=== PATIENT | male | born 1965 | race Caucasian/White ===

== ENCOUNTER 2022-08-11 18:32 | Emergency (ER) | payer MEDICAID ==
[~2022-08-11] VITALS: Ht 177.8 cm; Wt 90.7 kg
[2022-08-11] MEDS ORDERED: OXYCODONE (18:51)
[2022-08-11] MEDS ORDERED: diphenhydrAMINE 50 MG/1 ML VIAL IM ONE (19:00)
[2022-08-11] MEDS ORDERED: HALOPERIDOL LACTATE 5 MG/1 ML VIAL IM ONE (19:00)
[2022-08-11] MEDS ORDERED: diphenhydrAMINE 50 MG/1 ML VIAL ONE (19:02)
[2022-08-11] MEDS ORDERED: HALOPERIDOL LACTATE 5 MG/1 ML VIAL ONE (19:03)
--- NOTE | 2022-08-11 19:15 | NUR ---
Pt seen by MD for bedside eval. Safety measures in place. Will continue to monitor.
[2022-08-11 19:19] LABS: HEMATOCRIT 38.5 % (36.7-47.1); MEAN CORPUSCULAR HEMOGLOBIN 34.1 uug (23.8-33.4); MEAN CORPUSCULAR VOLUME 103.3 fL (73.0-96.2); PLATELET COUNT (AUTO) 338 K/uL (152-348)
[2022-08-11 19:35] LABS: CARBON DIOXIDE 25 mmol/L (21-32); CHLORIDE 108 mmol/L (98-107); GLUCOSE 109 mg/dL (74-106); POTASSIUM 3.6 mmol/L (3.5-5.1); UREA NITROGEN, BLOOD 10 mg/dL (7-18)
[2022-08-11 19:41] LABS: THYROID STIMULATING HORMONE 0.423 mIU/mL (0.358-3.740)
[2022-08-11 19:43] LABS: ALANINE AMINOTRANSFERASE 14 U/L (16-63); ALKALINE PHOSPHATASE 127 U/L (50-136); ASPARTATE AMINOTRANSFERASE 11 U/L (15-37); BILIRUBIN,DIRECT < 0.1 mg/dL (0.0-0.2); BILIRUBIN,TOTAL 0.2 mg/dL (0.2-1.0); TOTAL PROTEIN, SERUM 7.5 g/dL (6.4-8.2)
[2022-08-11 19:46] LABS: ACETAMINOPHEN < 2.0 ug/mL (10-30)
[2022-08-11 20:07] LABS: *BILIRUBIN,URIN NEGATIVE (NEGATIVE); *BLOOD, URINE NEGATIVE (NEGATIVE); *CLARITY,URINE CLEAR (CLEAR); *COLOR,URINE YELLOW (YELLOW); *KETONES,URINE NEGATIVE (NEGATIVE); *UROBILINOGEN,URINE 0.2 E.U./dl (NORMAL); LEUKOCYTE ESTERASE ,URINE NEGATIVE (NEGATIVE); NITRITE, URINE NEGATIVE (NEGATIVE); UGLUCOSE NEGATIVE (NEGATIVE)
[2022-08-11 20:27] LABS: *AMPHETAMINE, URINE NEGATIVE (NEGATIVE); *CANNABINOID, URINE NEGATIVE (NEGATIVE); *COCCAINE, URINE NEGATIVE (NEGATIVE); *PHENCYCLIDINE SCREEN,URINE NEGATIVE (NEGATIVE)
[2022-08-11] MEDS ORDERED: HYDROMORPHONE 1 MG/1 ML DISP.SYRIN ONE (21:59)
[2022-08-11] MEDS ORDERED: HYDROMORPHONE 1 MG/1 ML DISP.SYRIN IV ONE (22:00)
--- NOTE | 2022-08-11 23:20 | NUR ---
[facility], was told no beds available at the moment
--- NOTE | 2022-08-11 23:28 | NUR ---
Patient refused voluntary psychiatric admission
--- NOTE | 2022-08-11 23:31 | NUR ---
Patient given written and verbal discharge instructions. Patient verbalizes understanding of instructions. Patient is ambulatory with steady gait. Refuses offer of [facility] placement. Patient given list of available shelters in surrounding area. Patient is a/ox4, NAD noted.
[2022-08-11] MEDS ORDERED: EZET10TA15 PO (23:41)
[2022-08-11] MEDS ORDERED: ATOR80TA PO (23:41)
[2022-08-11] MEDS ORDERED: BUPR200T31 PO (23:41)
[2022-08-11] MEDS ORDERED: ASPI81TA31 PO (23:41)
[2022-08-11] MEDS ORDERED: FAMO-132 PO (23:41)
[2022-08-11] MEDS ORDERED: CLOP75TA33 PO (23:41)
[2022-08-11] MEDS ORDERED: SAXA5TAB PO (23:41)
[2022-08-11] MEDS ORDERED: METO-356 PO (23:41)
[2022-08-11] MEDS ORDERED: METF-440 PO (23:41)
[2022-08-11] MEDS ORDERED: AMLO-212 PO (23:41)
[2022-08-11] MEDS ORDERED: SIME80TA15 PO (23:41)
[2022-08-11] MEDS ORDERED: TRAZ-182 PO (23:41)
[2022-08-11 23:42] VITALS: BP 115/61
== END 2022-08-11 23:43 | disposition home or self-care (01) ==
LOC: ER 18:32
DX: S52.532A Colles' fracture of left radius, initial encounter for closed fracture (principal); F10.121 Alcohol abuse with intoxication delirium; F32.9 Major depressive disorder, single episode, unspecified; Z59.00 Homelessness unspecified; Z79.899 Other long term (current) drug therapy; Z20.822 Contact with and (suspected) exposure to COVID-19; X58.XXXA Exposure to other specified factors, initial encounter; Y93.89 Activity, other specified; Y92.89 Other specified places as the place of occurrence of the external cause; Y99.8 Other external cause status; Y90.7 Blood alcohol level of 200-239 mg/100 ml
CPT/HCPCS: 80076; 80048; 81003; 84443; 85025; 87426; 84484 ×2; 36415; 93005; 71045; 73090; 70450; 72125; 99285; 96374; 96372 ×2; 80299; 80320; 80307; 29125; J1200; J1630; J1170; A4663; G0480